=== PATIENT | male | born 1985 | race Caucasian/White ===

== ENCOUNTER 2018-03-06 08:33 | Outpatient (CLI) | payer OTHER | END 2018-03-06 08:34 | disposition home or self-care (01) | LOC: C.LAB 08:33 | DX: D64.9 Anemia, unspecified (principal); E11.9 Type 2 diabetes mellitus without complications; E55.9 Vitamin D deficiency, unspecified; D51.9 Vitamin B12 deficiency anemia, unspecified; N39.0 Urinary tract infection, site not specified; E78.00 Pure hypercholesterolemia, unspecified ==

== ENCOUNTER 2018-03-23 07:38 | Outpatient (CLI) | payer OTHER | END 2018-03-23 07:39 | disposition home or self-care (01) | LOC: C.LAB 07:38 | DX: K92.2 Gastrointestinal hemorrhage, unspecified (principal); B96.81 Helicobacter pylori [H. pylori] as the cause of diseases classified elsewhere ==